=== PATIENT | female | born 1965 | race Caucasian/White ===

== ENCOUNTER → 2020-07-24 | Outpatient (CLI) | payer OTHER ==
[2020-07-24 09:20] LABS: ALANINE AMINOTRANSFERASE 30 U/L (12-78); ALBUMIN 3.7 g/dL (3.4-5.0); ANION GAP 6 mmol/L (5-15); CALCIUM 8.5 mg/dL (8.5-10.1); CHLORIDE 110 mmol/L (98-107); CHOLESTEROL, TOTAL 227 mg/dL (140-239); CREATININE 0.77 mg/dL (0.55-1.02)
[2020-07-24 09:23] LABS: ALKALINE PHOSPHATASE 60 U/L (45-117); BILIRUBIN,TOTAL 0.6 mg/dL (0.2-1.0); CHOL/HDL RATIO 3.9; HDL CHOL % 26 % (28-40); HDL CHOLESTEROL (DIRECT) 58 mg/dL (40-60); LDL CHOLESTEROL,CALCULATED 155 mg/dL (54-169); LDL/HDL RATIO 2.7 (0.5-3.0); TOTAL PROTEIN 6.7 g/dL (6.4-8.2); TRIGLYCERIDES 70 mg/dL (50-200); VLDL CHOLESTEROL 14 mg/dL (0-25)
== END | disposition home or self-care (01) ==
LOC: LAB 08:53
PROVIDERS: ATTEND Family Medicine
DX: Z13.1 Encounter for screening for diabetes mellitus (principal); Z13.220 Encounter for screening for lipoid disorders
CPT/HCPCS: 36415; 80053; 80061; 83036

== ENCOUNTER 2020-08-28 12:19 | Outpatient (CLI) | payer OTHER ==
[2020-08-28 12:31] LABS: BASOPHILS % (AUTO) 0 % (0-1); EOSINOPHILS % (AUTO) 0 % (1-7); LYMPHOCYTES % (AUTO) 17 % (22-44); MEAN CORPUSCULAR HEMOGLOBIN 32.3 pg (27.0-34.8); MEAN PLATELET VOLUME 7.7 fL (7.4-10.4); MONOCYTES % (AUTO) 6 % (2-9); NEUTROPHILS % (AUTO) 77 % (42-75); PLATELET COUNT 172 x10^3/uL (130-400); RED BLOOD COUNT 4.45 x10^6/uL (3.82-5.3)
[2020-08-28 12:34] LABS: MD NO
[2020-08-28 12:55] LABS: FREE T4 (FREE THYROXINE) 1.09 ng/dL (0.76-1.46)
== END 2020-08-28 23:59 | disposition home or self-care (01) ==
LOC: LAB 12:19
PROVIDERS: ATTEND Family Medicine
DX: R53.83 Other fatigue (principal); R00.2 Palpitations
CPT/HCPCS: 36415; 82670; 83001; 83002; 84439; 84443; 84481; 85025

== ENCOUNTER → 2020-09-11 | Outpatient (CLI) | payer OTHER | END | disposition home or self-care (01) | LOC: CVU 08:23 | PROVIDERS: ATTEND Internal Medicine Cardiovascular Disease | DX: I10 Essential (primary) hypertension (principal); R06.02 Shortness of breath; R11.0 Nausea | CPT/HCPCS: 93306 ==

== ENCOUNTER → 2020-09-15 | Outpatient (CLI) | payer OTHER | END | disposition home or self-care (01) | LOC: CFH 13:33 | PROVIDERS: ATTEND Obstetrics & Gynecology | DX: Z12.31 Encounter for screening mammogram for malignant neoplasm of breast (principal); Z13.6 Encounter for screening for cardiovascular disorders; K76.0 Fatty (change of) liver, not elsewhere classified; K80.20 Calculus of gallbladder without cholecystitis without obstruction; R16.1 Splenomegaly, not elsewhere classified; I10 Essential (primary) hypertension; R11.0 Nausea | CPT/HCPCS: 75571; 76705; 77063; 77067 ==

== ENCOUNTER → 2020-11-03 | Outpatient (CLI) | payer OTHER ==
[~2020-11-03] MED LIST: SINCALIDE (KINEVAC) 5 MCG ONE
== END | disposition home or self-care (01) ==
LOC: RAD 11:00
PROVIDERS: ATTEND Internal Medicine
DX: R11.0 Nausea (principal); R10.10 Upper abdominal pain, unspecified
CPT/HCPCS: 78227; A9537; J2805

== ENCOUNTER 2020-11-13 08:39 | Day surgery (SDC) | payer OTHER ==
[2020-11-11 14:21] LABS: ALANINE AMINOTRANSFERASE 57 U/L (12-78); ALBUMIN 3.8 g/dL (3.4-5.0); ANION GAP 8 mmol/L (5-15); CHLORIDE 106 mmol/L (98-107); CREATININE 0.76 mg/dL (0.55-1.02)
[2020-11-11 14:23] LABS: ALKALINE PHOSPHATASE 76 U/L (45-117); BILIRUBIN,TOTAL 0.5 mg/dL (0.2-1.0)
[~2020-11-13] VITALS: Ht 167.6 cm; Wt 98.6 kg
[~2020-11-13 08:39] MED LIST changes: +BUPIVACAINE/PF 0.5% ONE; +EPINEPHRINE 1 MG/ML, 1ML ONE; +LORA-446 PO; +METO25TA91 PO; +PROM12.57 PO; +ROSU10TA2 PO; +SERT50TA28 PO; -SINCALIDE (KINEVAC) 5 MCG ONE; +TRAZ50TA66 PO; +ZOLP12.56 PO; +naltrexone PO
[2020-11-13 09:20] VITALS: BP 134/82
[2020-11-13] MEDS ORDERED: CHLORHEXIDINE 15 ML UDC PO ONE (09:30)
[2020-11-13] MEDS ORDERED: INDOCYANINE GREEN 25 MG VIAL IVPush ONE (09:30)
[2020-11-13] MEDS ORDERED: LACTATED RINGERS 1,000 ML IV SCH (09:30)
[2020-11-13] MEDS ORDERED: LIDOCAINE-MPF 1%, 2ML INFIL ONE (09:30)
[2020-11-13] MEDS ORDERED: INDOCYANINE GREEN 25 MG VIAL ONE (09:32)
[2020-11-13] MEDS ORDERED: FENTANYL PF 250 MCG/5ML ONE (10:05)
[2020-11-13] MEDS ORDERED: MIDAZOLAM 1 MG/ML, 2ML ONE (10:05)
[2020-11-13] MEDS ORDERED: FENTANYL PF 100 MCG/2ML ONE ×2 (11:47→12:08)
[2020-11-13] MEDS ORDERED: PROMETHAZINE 25 MG/ML, 1ML ONE (11:47)
[2020-11-13] MEDS ORDERED: ACETAMINOPHEN 650 MG/20.3 ML UDC ONE (11:53)
[2020-11-13] MEDS ORDERED: KETOROLAC 30 MG/1 ML ONE (11:53)
[2020-11-13] MEDS ORDERED: OXYcodone 5 MG/5 ML ORAL.SOL UDC ONE (11:53)
[2020-11-13] MEDS: FENTANYL PF 100 MCG/2ML IV PRN ×4 (11:55→12:15)
[2020-11-13] MEDS ORDERED: PROMETHAZINE 25 MG/ML, 1ML IV PRN (12:00)
[2020-11-13] MEDS ORDERED: ONDANSETRON 2MG/ML, 2ML IVPush PRN (12:00)
[2020-11-13] MEDS ORDERED: HYDROmorphone 1 MG/ML, 1ML INJ IV PRN (12:00)
[2020-11-13] MEDS ORDERED: KETOROLAC 30 MG/1 ML IV PRN (12:00)
[2020-11-13] MEDS ORDERED: LABETALOL 5MG/ML, 20ML IV PRN (12:00)
[2020-11-13] MEDS ORDERED: MEPERIDINE/PF 25MG/0.5ML IVPush PRN (12:00)
[2020-11-13] MEDS ORDERED: ALBUTEROL SULFATE 2.5 MG/3 ML NPPB PRN (12:00)
[2020-11-13] MEDS ORDERED: DIAZEPAM 5 MG/ML, 2ML IV PRN ×2 (12:00)
[2020-11-13] MEDS ORDERED: hydrALAzine 20 MG/ML, 1ML IV PRN (12:00)
[2020-11-13] MEDS ORDERED: OXYcodone 5 MG/5 ML ORAL.SOL UDC PO PRN (12:00)
[2020-11-13] MEDS ORDERED: METOCLOPRAMIDE 5 MG/ML, 2ML IV PRN (12:00)
[2020-11-13] MEDS ORDERED: HYDR-2214 PO (12:01)
[2020-11-13] MEDS ORDERED: ONDA4TAB13 SL (12:01)
[2020-11-13] MEDS ORDERED: HYDROmorphone 1 MG/ML, 1ML INJ ONE (12:20)
[2020-11-13] MEDS ORDERED: PROPOFOL 10 MG/ML, 20ML ONE (17:06)
[2020-11-13] MEDS ORDERED: DEXAMETHASONE 4 MG/ML, 1ML ONE (17:06)
[2020-11-13] MEDS ORDERED: SUGAMMADEX 200 MG/2 ML IVPush ONE (17:06)
[2020-11-13] MEDS ORDERED: SUCCINYLCHOLINE 20 MG/ML, 10ML ONE (17:06)
[2020-11-13] MEDS ORDERED: ONDANSETRON 2MG/ML, 2ML ONE (17:06)
[2020-11-13] MEDS ORDERED: CEFAZOLIN 1,000 MG ONE (17:06)
[2020-11-13] MEDS ORDERED: ROCURONIUM 10MG/ML,5ML ONE (17:06)
== END 2020-11-13 14:00 | disposition home or self-care (01) ==
LOC: OUT 08:39
PROVIDERS: ATTEND Surgery
DX: K80.10 Calculus of gallbladder with chronic cholecystitis without obstruction (principal); K42.9 Umbilical hernia without obstruction or gangrene; K66.0 Peritoneal adhesions (postprocedural) (postinfection); I10 Essential (primary) hypertension; E78.5 Hyperlipidemia, unspecified; F41.9 Anxiety disorder, unspecified; E66.9 Obesity, unspecified; Z20.822 Contact with and (suspected) exposure to COVID-19; Z68.35 Body mass index [BMI] 35.0-35.9, adult; Z90.710 Acquired absence of both cervix and uterus; Z90.722 Acquired absence of ovaries, bilateral; Z90.79 Acquired absence of other genital organ(s)
CPT/HCPCS: 36415; 47562; 80053; 82150; 83690; 88304; J0171; J0330; J0690; J1100; J1170; J1885; J2250; J2405; J2550; J2704; J3010; J7120; U0003; U0005

== ENCOUNTER 2020-11-28 11:42 | Emergency (ER) | payer OTHER ==
[~2020-11-28] VITALS: Ht 167.6 cm; Wt 98.4 kg
[~2020-11-28 11:42] MED LIST changes: -BUPIVACAINE/PF 0.5% ONE; -EPINEPHRINE 1 MG/ML, 1ML ONE; +HYDR-2214 PO; +ONDA4TAB13 SL
--- NOTE | 2020-11-28 13:14 | NUR ---
PT TO ROOM FROM LOBBY,.
--- NOTE | 2020-11-28 13:16 | NUR ---
THIS IS A 55 YEAR OLD FEMALE WHO C/O OF HAVING GALLBLADDER REMOVED X 2 WEEKS, NAUSEA, LOOSE STOOL, POOR APPETITE, AND HEART PALPITATIONS. EKG COMPLETED. PLACED PATIENT ON CONTINOUS SP02 AND CYCLE VS. AWAIT MD FOR ORDERS
[2020-11-28] MEDS ORDERED: METOCLOPRAMIDE 5 MG/ML, 2ML ONE (13:37)
[2020-11-28] MEDS ORDERED: LORazepam 2 MG/ML, 1ML ONE (13:38)
[2020-11-28 13:42] LABS: BASOPHILS % (AUTO) 1 % (0-1); EOSINOPHILS % (AUTO) 1 % (1-7); LYMPHOCYTES % (AUTO) 15 % (22-44); MEAN CORPUSCULAR HGB CONC 35.1 g/dL (32.4-35.8); MEAN PLATELET VOLUME 7.7 fL (7.4-10.4); MONOCYTES % (AUTO) 5 % (2-9); NEUTROPHILS % (AUTO) 79 % (42-75); PLATELET COUNT 191 x10^3/uL (130-400); RED BLOOD COUNT 4.24 x10^6/uL (3.82-5.3); RED CELL DISTRIBUTION WIDTH 13.4 % (9.6-15.2)
--- NOTE | 2020-11-28 13:49 | NUR ---
OBTAINED A STOOL SAMPLE, PT TO X RAY VIA GURNEY
[2020-11-28 13:54] LABS: ALANINE AMINOTRANSFERASE 62 U/L (12-78); ALBUMIN 3.8 g/dL (3.4-5.0); ANION GAP 6 mmol/L (5-15); CALCIUM 8.7 mg/dL (8.5-10.1); CHLORIDE 108 mmol/L (98-107); CREATININE 0.61 mg/dL (0.55-1.02)
[2020-11-28] MEDS ORDERED: METOCLOPRAMIDE 5 MG/ML, 2ML IVPush ONE (14:00)
[2020-11-28] MEDS ORDERED: LORazepam 2 MG/ML, 1ML IVPush ONE (14:00)
[2020-11-28] MEDS ORDERED: SODIUM CHLORIDE 0.9% 1,000ML IVBOLUS ONE (14:00)
[2020-11-28 14:05] LABS: ALKALINE PHOSPHATASE 91 U/L (45-117); BILIRUBIN,TOTAL 0.5 mg/dL (0.2-1.0); TOTAL PROTEIN 7.1 g/dL (6.4-8.2)
[2020-11-28] MEDS ORDERED: SODIUM CHLORIDE FLUSH 10ML SYR IVF ONE (14:30)
[2020-11-28 14:58] LABS: CLOSTRIDIUM DIFFICILE ANTIGEN NEGATIVE; CLOSTRIDIUM DIFFICILE TOXIN NEGATIVE (Negative)
[2020-11-28 16:00] VITALS: BP 175/80
--- NOTE | 2020-11-28 16:00 | NUR ---
Patient/Caregiver given discharge instructions and they have confirmed that they understand the instructions. Patient ambulatory with steady gait. NAD, all questions answered appropriately, denies additional needs at this time. No personal belongings left in room after discharge.
== END 2020-11-28 16:02 | disposition home or self-care (01) ==
LOC: ED 14:26
DX: R19.7 Diarrhea, unspecified (principal); R11.0 Nausea; I10 Essential (primary) hypertension; R00.2 Palpitations; G89.29 Other chronic pain
CPT/HCPCS: 36415; 74022; 80053; 83690; 83735; 84443; 85025; 87324; 89055; 93005; 96361; 96374; 96375; 99285; J2060; J2765; J7030

== ENCOUNTER → 2021-01-05 | Outpatient (CLI) | payer OTHER ==
[2021-01-05 09:23] LABS: ALANINE AMINOTRANSFERASE 31 U/L (12-78); ALBUMIN 3.9 g/dL (3.4-5.0); CHOLESTEROL, TOTAL 218 mg/dL (140-239); TRIGLYCERIDES 190 mg/dL (50-200); VLDL CHOLESTEROL 38 mg/dL (0-25)
[2021-01-05 09:25] LABS: ALKALINE PHOSPHATASE 77 U/L (45-117); BILIRUBIN,TOTAL 0.3 mg/dL (0.2-1.0); CHOL/HDL RATIO 4.6; HDL CHOL % 22 % (28-40); HDL CHOLESTEROL (DIRECT) 47 mg/dL (40-60); LDL CHOLESTEROL,CALCULATED 133 mg/dL (54-169); LDL/HDL RATIO 2.8 (0.5-3.0); TOTAL PROTEIN 7.2 g/dL (6.4-8.2)
[2021-01-05 09:29] LABS: BILIRUBIN, DIRECT < 0.1 mg/dL (0.1-0.2); BILIRUBIN,INDIRECT 0.2 mg/dL (0.0-2.0)
== END | disposition home or self-care (01) ==
LOC: LAB 08:55
PROVIDERS: ATTEND Internal Medicine Cardiovascular Disease
DX: I10 Essential (primary) hypertension (principal); E78.2 Mixed hyperlipidemia; G47.30 Sleep apnea, unspecified; K56.3 Gallstone ileus; R00.2 Palpitations; R06.02 Shortness of breath; R93.2 Abnormal findings on diagnostic imaging of liver and biliary tract; Z87.19 Personal history of other diseases of the digestive system
CPT/HCPCS: 36415; 80061; 80076

== ENCOUNTER 2021-02-26 09:19 | Outpatient (CLI) | payer OTHER ==
[2021-02-26 09:43] LABS: ALANINE AMINOTRANSFERASE 67 U/L (12-78); ALBUMIN 4.1 g/dL (3.4-5.0); ANION GAP 11 mmol/L (5-15); CHLORIDE 104 mmol/L (98-107); CREATININE 0.87 mg/dL (0.55-1.02)
[2021-02-26 09:46] LABS: ALKALINE PHOSPHATASE 86 U/L (45-117); BILIRUBIN,TOTAL 0.6 mg/dL (0.2-1.0); CHOL/HDL RATIO 2.8; CHOLESTEROL, TOTAL 147 mg/dL (140-239); HDL CHOL % 35 % (28-40); HDL CHOLESTEROL (DIRECT) 52 mg/dL (40-60); LDL CHOLESTEROL,CALCULATED 57 mg/dL (54-169); LDL/HDL RATIO 1.1 (0.5-3.0); TOTAL PROTEIN 7.4 g/dL (6.4-8.2); TRIGLYCERIDES 188 mg/dL (50-200); VLDL CHOLESTEROL 38 mg/dL (0-25)
== END 2021-02-26 23:59 | disposition home or self-care (01) ==
LOC: LAB 09:19
PROVIDERS: ATTEND Internal Medicine Cardiovascular Disease
DX: E78.2 Mixed hyperlipidemia (principal); I10 Essential (primary) hypertension; G47.30 Sleep apnea, unspecified; K56.3 Gallstone ileus; R00.2 Palpitations; R06.02 Shortness of breath; R60.9 Edema, unspecified; R93.2 Abnormal findings on diagnostic imaging of liver and biliary tract; Z87.19 Personal history of other diseases of the digestive system
CPT/HCPCS: 36415; 80053; 80061